=== PATIENT | female | born 1975 | race American Indian/Alaskan Native ===

== ENCOUNTER 2016-11-02 16:51 | Emergency (ER) | payer MEDICAID, OTHER ==
[2016-11-02 18:27] LABS: Anion Gap 18 mmol/L; Blood Urea Nitrogen 9 mg/dL (7-17); Calcium 9.5 mg/dL (8.4-10.2); Carbon Dioxide 26 mmol/L (22-30); Chloride 90.6 mmol/L (98-107); Glucose 360 mg/dL (65-100); Potassium 3.7 mmol/L (3.6-5.0); Sodium 131 mmol/L (137-145)
[2016-11-02 18:29] LABS: Basophils % (Auto) 0.5 % (0.0-1.8); Eosinophils % (Auto) 1.9 % (0.0-4.3); Hematocrit 39.9 % (30.3-42.9); Hemoglobin 12.8 gm/dl (10.1-14.3); Mean Corpuscular HGB Conc 32 % (30-34); Mean Corpuscular Hemoglobin 27 pg (28-32); Mean Corpuscular Volume 84 fl (79-97); Platelet Count 260 K/mm3 (140-440); Red Blood Count 4.76 M/mm3 (3.65-5.03); Red Cell Distribution Width 12.9 % (13.2-15.2); White Blood Count 5.8 K/mm3 (4.5-11.0)
[2016-11-02 18:36] LABS: Bilirubin,Urine NEG (Negative); Blood,Urine SM (Negative); Ketones,Urine TR mg/dL (Negative); Leukocyte Esterase,Urine SM (Negative); Mucus,Urine FEW /HPF; Nitrite,Urine NEG (Negative); Protein,Urine <15 mg/dL mg/dL (Negative); Urobilinogen,Urine < 2.0 mg/dL (<2.0)
[2016-11-02 21:36] VITALS: BP 142/89
[2016-11-02] MEDS ORDERED: NACL 0.9% 1000 ML 1,000 ML IV ONE (22:04)
[2016-11-02] MEDS ORDERED: NORCO 5/325 PO ONE (22:05)
[2016-11-02] MEDS ORDERED: ROCEPHIN/NS 1 GM/50 ML 1 GM/50 ML BAG IV ONE (22:05)
--- NOTE | 2016-11-02 22:09 | Emergency Department Report ---
HPI - General Chief Complaint: Skin/Abscess/Foreign Body Time Seen by Provider: 11/02/16 21:47 - HPI HPI: Room 1 The patient is a 41-year-old female presenting with chief complaint left inner thigh abscess. Patient states she noticed the swelling to her left inner thigh 4 days ago. 3 days ago she noticed increased swelling and increased pain. Yesterday there was some drainage from the site and today the drainage increased. The patient states the drainage was yellow in nature. Patient admits to subjective fever. The patient currently gives her pain a score of 5-6 /10 Location: Left thigh Duration: 4 Days Quality: Pain Severity: 5-6/10 Modifying factors: [see above] Context: [see above] Mode of transportation: Unknown ED Past Medical Hx - Past Medical History Previous Medical History?: Yes Hx Hypertension: Yes (during ) Hx Diabetes: Yes (type 2 ( Metformin &diet)) Additional medical history: heart murmur - Surgical History Past Surgical History?: No - Family History Family history: no significant - Social History Smoking Status: Never Smoker Substance Use Type: Alcohol (occasional) - Medications Home Medications: Home Medications Medication Instructions Recorded Confirmed Last Taken Type ALBUTEROL Inhaler [ProAir HFA 2 puff IH QID PRN #1 inhalation 05/07/15 11/02/16 Unknown Rx Inhaler] Metformin HCl [Glucophage] 1,000 mg PO BID #60 tablet 01/26/16 11/02/16 Rx glyBURIDE [Diabeta] 1.25 mg PO BID #60 tablet 01/26/16 11/02/16 11/01/16 Rx Clindamycin [Clindamycin CAP] 300 mg PO Q6H #28 capsule 11/02/16 Unknown Rx HYDROcodone/APAP 5-325 [[place] 1 - 2 each PO Q6HR PRN #10 tablet 11/02/16 Unknown Rx 5/325] Ibuprofen [Motrin 800 MG tab] 800 mg PO Q8HR PRN #20 tablet 11/02/16 Unknown Rx ED Review of Systems ROS: Stated complaint: CYST ON LT THIGH RUPTURED Other details as noted in HPI Comment: All other systems reviewed and negative Constitutional: denies: chills, fever Eyes: denies: eye pain, eye discharge, vision change ENT: denies: ear pain, throat pain Respiratory: denies: cough, shortness of breath, wheezing Cardiovascular: denies: chest pain, palpitations Endocrine: no symptoms reported Gastrointestinal: denies: abdominal pain, nausea, diarrhea Genitourinary: denies: urgency, dysuria, discharge Musculoskeletal: denies: back pain, joint swelling, arthralgia Skin: lesions Neurological: denies: headache, weakness, paresthesias Psychiatric: denies: anxiety, depression Hematological/Lymphatic: denies: easy bleeding, easy bruising Physical Exam - Physical Exam Vital Signs: Vital Signs 11/02/16 11/02/16 17:12 21:33 Temperature 98.3 F 98.4 F Pulse Rate 88 91 H Respiratory 20 20 Rate Blood Pressure 163/99 Blood Pressure 142/89 [Right] O2 Sat by Pulse 100 99 Oximetry Physical Exam: GENERAL: The patient is well-developed well-nourished female lying on stretcher not appearing to be in acute distress. [] HEENT: Normocephalic. Atraumatic. Extraocular motions are intact. Patient has moist mucous membranes. NECK: Supple. Trachea midline CHEST/LUNGS: Clear to auscultation. There is no respiratory distress noted. HEART/CARDIOVASCULAR: Regular. There is no tachycardia. There is no gallop rub or murmur. ABDOMEN: Abdomen is soft, nontender. Patient has normal bowel sounds. There is no abdominal distention. SKIN: There is an approximately 2 cm diameter region of induration with a 8 mm central opening that is not currently draining to the proximal inner left thigh adjacent to the perineum. The patient's doctor pigmentation makes it difficult to appreciate erythema. The lesion is tender to palpation. There is no diaphoresis. NEURO: The patient is awake, alert, and oriented. The patient is cooperative. The patient has normal speech MUSCULOSKELETAL: There is no evidence of acute injury. ED Course Vital Signs 11/02/16 11/02/16 17:12 21:33 Temperature 98.3 F 98.4 F Pulse Rate 88 91 H Respiratory 20 20 Rate Blood Pressure 163/99 Blood Pressure 142/89 [Right] O2 Sat by Pulse 100 99 Oximetry ED Medical Decision Making - Lab Data Result diagrams: 11/02/16 17:43 11/02/16 17:43 Laboratory Tests 11/02/16 11/02/16 11/02/16 17:09 17:43 17:43 WBC 5.8 RBC 4.76 Hgb 12.8 Hct 39.9 MCV 84 MCH 27 L MCHC 32 RDW 12.9 L Plt Count 260 Lymph % (Auto) 22.3 [place] % (Auto) 9.9 H Eos % (Auto) 1.9 Baso % (Auto) 0.5 Lymph # 1.3 [place] # 0.6 Eos # 0.1 Baso # 0.0 Seg Neutrophils % 65.4 Seg Neutrophils # 3.8 VBG pH Sodium 131 L Potassium 3.7 Chloride 90.6 L Carbon Dioxide 26 Anion Gap 18 BUN 9 Creatinine 0.6 L Estimated GFR > 60 BUN/Creatinine Ratio 15.00 Glucose 360 H POC Glucose 404 H Calcium 9.5 Urine Color Urine Turbidity Urine pH Ur Specific [place] Urine Protein Urine Glucose (UA) Urine Ketones Urine Blood Urine Nitrite Urine Bilirubin Urine Urobilinogen Ur Leukocyte Esterase Urine WBC (Auto) Urine RBC (Auto) U Epithel Cells (Auto) Urine Mucus 11/02/16 11/02/16 11/02/16 17:43 17:51 22:01 WBC RBC Hgb Hct MCV MCH MCHC RDW Plt Count Lymph % (Auto) [place] % (Auto) Eos % (Auto) Baso % (Auto) Lymph # [place] # Eos # Baso # Seg Neutrophils % Seg Neutrophils # VBG pH 7.340 Sodium Potassium Chloride Carbon Dioxide Anion Gap BUN Creatinine Estimated GFR BUN/Creatinine Ratio Glucose POC Glucose 388 H Calcium Urine Color Straw Urine Turbidity Clear Urine pH 6.0 Ur Specific [place] 1.028 Urine Protein <15 mg/dl Urine Glucose (UA) >=500 Urine Ketones Tr Urine Blood Sm Urine Nitrite Neg Urine Bilirubin Neg Urine Urobilinogen < 2.0 Ur Leukocyte Esterase Sm Urine WBC (Auto) 6.0 Urine RBC (Auto) 8.0 U Epithel Cells (Auto) 11.0 Urine Mucus Few - Differential Diagnosis abscess Critical care attestation.: If time is entered above; I have spent that time in minutes in the direct care of this critically ill patient, excluding procedure time. ED Disposition Clinical Impression: Abscess of left thigh, Hyperglycemia Disposition: DISCHARGED TO HOME OR SELFCARE Is pt being admited?: No Does the pt Need Aspirin: No Condition: Stable Instructions: Abscess (ED) Additional Instructions: Return to the emergency department immediately should you develop worsening symptoms, fever, inability to tolerate food or liquid or any other concerns. Prescriptions: Clindamycin [Clindamycin CAP] 300 mg PO Q6H #28 capsule HYDROcodone/APAP 5-325 [[place] 5/325] 1 - 2 each PO Q6HR PRN #10 tablet PRN Reason: Pain Ibuprofen [Motrin 800 MG tab] 800 mg PO Q8HR PRN #20 tablet PRN Reason: Pain Referrals: JAMAL VALLEJO MD [Primary Care Provider] - 3-5 Days Time of Disposition: 23:38
[2016-11-06 05:22] LABS: B-Hydroxybutyrate 0.1 mmol/L (0.2 - 0.28)
== END 2016-11-02 23:59 | disposition home or self-care (01) ==
LOC: ED 16:51
DX: L02.416 Cutaneous abscess of left lower limb (principal); E11.65 Type 2 diabetes mellitus with hyperglycemia
CPT/HCPCS: 36415; 80048; 81001; 82010; 82805; 82962; 85025; 96365; 96375; 99284; J0696; J7030; J1815

== ENCOUNTER 2019-05-27 11:24 | Observation (INO) | payer OTHER ==
--- NOTE | 2019-05-27 11:58 | Event Note ---
ED Screening Note Date of service: 05/27/19 Time: 11:56 ED Screening Note: 43 y o female presents with abd pain with vomitting and diarhea x 2 days states "20 episodes of vomitting"" This initial assessment/diagnostic orders/clinical plan/treatment(s) is/are subject to change based on patients health status, clinical progression and re- assessment by fellow clinical providers in the ED. Further treatment and workup at subsequent clinical providers discretion. Patient/guardian urged not to elope from the ED as their condition may be serious if not clinically assessed and managed. Initial orders include: labs, ua acc eval
[2019-05-27 12:37] LABS: Basophils % (Auto) 0.7 % (0.0-1.8); Eosinophils % (Auto) 0.5 % (0.0-4.3); Hematocrit 43.7 % (30.3-42.9); Hemoglobin 14.1 gm/dl (10.1-14.3); Lymphocytes # (Auto) 0.9 K/mm3 (1.2-5.4); Lymphocytes % (Auto) 25.8 % (13.4-35.0); Mean Corpuscular HGB Conc 32 % (30-34); Mean Corpuscular Volume 88 fl (79-97); Monocytes # (Auto) 0.5 K/mm3 (0.0-0.8); Monocytes % (Auto) 14.9 % (0.0-7.3); Platelet Count 237 K/mm3 (140-440); Red Blood Count 4.97 M/mm3 (3.65-5.03); Red Cell Distribution Width 13.3 % (13.2-15.2)
[2019-05-27 12:46] LABS: Bilirubin,Urine NEG (Negative); Blood,Urine SM (Negative); Color,Urine Yellow (Yellow); Mucus,Urine FEW /HPF; Protein,Urine <15 mg/dL mg/dL (Negative); Urobilinogen,Urine < 2.0 mg/dL (<2.0)
[2019-05-27 12:52] LABS: HCG Qualitative,Urine Negative (Negative)
[2019-05-27 13:04] LABS: Alanine Aminotransferase 18 units/L (7-56); Albumin 4.2 g/dL (3.9-5); BUN/Creatinine Ratio 10; Blood Urea Nitrogen 10 mg/dL (7-17); Calcium 8.8 mg/dL (8.4-10.2); Hemolysis Index 7
[2019-05-27] MEDS ORDERED: SODIUM CHLORIDE 0.9% 1000 ML 1,000 ML IV ONE (13:55)
--- NOTE | 2019-05-27 14:06 | Emergency Department Report ---
ED N/V/D HPI - General Chief complaint: Nausea/Vomiting/Diarrhea Stated complaint: STOMACH PAIN Time Seen by Provider: 05/27/19 13:54 Source: patient Mode of arrival: Ambulatory Limitations: No Limitations - History of Present Illness Initial comments: Patient is a 43-year-old female that presents emergency room with complaints of nausea vomiting diarrhea. Patient states that her symptoms started yesterday. Patient states they're worsening. Patient states she has had mild generalized abdominal pain. Patient states her abdominal pain is a 4 out of 10. Patient states her pain is better with rest and worse with vomiting and movement. Patient states she is a type II diabetic and is currently taking metformin, glyburide and insulin. Patient states her last A1c was 9. MD complaint: nausea, vomiting, diarrhea, abdominal pain -: Sudden Description of Vomiting: watery Description of Diarrhea: water Associated Abdominal Pain: Yes Location: diffuse Radiation: none Severity: mild, severe Pain Scale: 3 Quality: cramping Consistency: constant Improves with: rest Worsens with: movement Context: other Associated Symptoms: nausea/vomiting. denies: myalgias, chest pain, cough, diaphoresis, fever/chills, headaches, loss of appetite, malaise, rash, dysuria, shortness of breath, syncope, weakness - Related Data Home Medications Medication Instructions Recorded Confirmed Last Taken Ibuprofen [Motrin 800 MG tab] 800 mg PO PRN PRN 05/27/19 05/27/19 Unknown Novolin 70-30 100 Unit/ml Vial 35 units IM BID 05/27/19 05/27/19 Unknown Prednisone 40 mg PO ONCE 05/27/19 05/27/19 Unknown Previous Rx's Medication Instructions Recorded Last Taken Type Metformin HCl [Glucophage] 1,000 mg PO BID #60 tablet 01/26/16 11/01/16 Rx glyBURIDE [Diabeta] 1.25 mg PO BID #60 tablet 01/26/16 11/01/16 Rx Allergies Allergy/AdvReac Type Severity Reaction Status Date / Time No Known Allergies Allergy Verified 05/27/19 11:29 ED Review of Systems ROS: Stated complaint: STOMACH PAIN Other details as noted in HPI Constitutional: denies: chills, fever Eyes: denies: eye pain, eye discharge, vision change ENT: denies: ear pain, throat pain Respiratory: denies: cough, shortness of breath, wheezing Cardiovascular: denies: chest pain, palpitations Endocrine: no symptoms reported Gastrointestinal: abdominal pain, nausea, vomiting, diarrhea. denies: constipat ion, hematemesis, melena, hematochezia Genitourinary: denies: urgency, dysuria, discharge Musculoskeletal: denies: back pain, joint swelling, arthralgia Skin: denies: rash, lesions Neurological: denies: headache, weakness, paresthesias Psychiatric: denies: anxiety, depression Hematological/Lymphatic: denies: easy bleeding, easy bruising ED Past Medical Hx - Past Medical History Previous Medical History?: Yes Hx Hypertension: Yes (during ) Hx Congestive Heart Failure: No Hx Diabetes: Yes (type 2 ( Metformin &diet)) Hx Deep Vein Thrombosis: No Hx Renal Disease: No Hx Sickle Cell Disease: No Hx Seizures: No Hx Asthma: No Hx COPD: No Hx HIV: No Additional medical history: heart murmur - Surgical History Past Surgical History?: No - Family History Family history: no significant - Social History Smoking Status: Never Smoker Substance Use Type: None - Medications Home Medications: Home Medications Medication Instructions Recorded Confirmed Last Taken Type Metformin HCl [Glucophage] 1,000 mg PO BID #60 tablet 01/26/16 05/27/19 11/01/16 Rx glyBURIDE [Diabeta] 1.25 mg PO BID #60 tablet 01/26/16 05/27/19 11/01/16 Rx Ibuprofen [Motrin 800 MG tab] 800 mg PO PRN PRN 05/27/19 05/27/19 Unknown Histo ry Novolin 70-30 100 Unit/ml Vial 35 units IM BID 05/27/19 05/27/19 Unknown History Prednisone 40 mg PO ONCE 05/27/19 05/27/19 Unknown History ED Physical Exam - General Limitations: No Limitations General appearance: alert, in no apparent distress - Head Head exam: Present: atraumatic, normocephalic - Eye Eye exam: Present: normal appearance - ENT ENT exam: Present: mucous membranes dry - Neck Neck exam: Present: normal inspection - Respiratory Respiratory exam: Present: normal lung sounds bilaterally. Absent: respiratory distress - Cardiovascular Cardiovascular Exam: Present: regular rate, normal rhythm. Absent: systolic murmur, diastolic murmur, rubs, gallop - GI/Abdominal GI/Abdominal exam: Present: soft, normal bowel sounds. Absent: distended, tenderness, guarding - Extremities Exam Extremities exam: Present: normal inspection - Back Exam Back exam: Present: normal inspection - Neurological Exam Neurological exam: Present: alert, oriented X3 - Psychiatric Psychiatric exam: Present: normal affect, normal mood - Skin Skin exam: Present: warm, dry, intact, normal color. Absent: rash ED Course Vital Signs 05/27/19 05/27/19 05/27/19 11:55 14:36 14:59 Temperature 98.6 F Pulse Rate 105 H 90 Respiratory 20 20 20 Rate Blood Pressure 138/94 Blood Pressure 150/88 [Left] O2 Sat by Pulse 98 100 Oximetry - Reevaluation(s) Reevaluation #1: I discussed all results with patient. I discussed plan of care and admission patient. Patient agrees plan of admission patient would have an IV placed and given fluids. Patient will be admitted to the hospitalist service. 05/27/19 14:04 - Consultations Consultation #1: Hospitalist consult for admission. Hospitalist admit patient. Bridge orders placed. 05/27/19 14:17 ED Medical Decision Making - Lab Data Result diagrams: 05/27/19 12:16 05/27/19 12:16 - Medical Decision Making Patient is a 43-year-old female up since emergency room with complaints of abdominal pain, nausea vomiting and diarrhea. Patient found to be in HHS versus DKA versus metabolic acidosis. Patient admitted to the hospitalist service. Patient given a saline bolus. Patient's clinical findings consistent with metabolic acidosis and dehydration. - Differential Diagnosis n/v/d. acidosis. dka. hhs,. abd pain Critical Care Time: Yes Critical care time in (mins) excluding proc time.: 35 Critical care attestation.: If time is entered above; I have spent that time in minutes in the direct care of this critically ill patient, excluding procedure time. 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
--- NOTE | 2019-05-27 22:18 | History and Physical Report ---
History of Present Illness Date of examination: 05/27/19 Date of admission: 05/27/19 14:30 Chief complaint: Nausea Vomiting and Diarrhea for one day History of present illness: 43-year-old female that presents emergency room with complaints of nausea vomiting diarrhea. Patient states that her symptoms started yesterday. Patient states they're worsening. Patient states she has had mild generalized abdominal pain. Patient states her abdominal pain is a 4 out of 10. Patient states her pain is better with rest and worse with vomiting and movement. Patient states she is a type II diabetic and is currently taking metformin, glyburide and insulin. Patient states her last A1c was 9. Past Medical History Previous Medical History?: Yes Hypertension: Yes Diabetes: Yes (type 2 ( Metformin &diet)) Additional medical history: heart murmur Surgical History Past Surgical History?: No Family History Family history: no significant Social History Smoking Status: Never Smoker Substance Use Type: None - Medications Home Medications: Home Medications Medication Instructions Recorded Confirmed Last Taken Type Metformin HCl [Glucophage] 1,000 mg PO BID #60 tablet 01/26/16 05/27/19 11/01/16 Rx glyBURIDE [Diabeta] 1.25 mg PO BID #60 tablet 01/26/16 05/27/19 11/01/16 Rx Ibuprofen [Motrin 800 MG tab] 800 mg PO PRN PRN 05/27/19 05/27/19 Unknown History Novolin 70-30 100 Unit/ml Vial 35 units IM BID 05/27/19 05/27/19 Unknown History Prednisone 40 mg PO ONCE 05/27/19 05/27/19 Unknown History Review of Systems ROS: Stated complaint: STOMACH PAIN Other details as noted in HPI Constitutional: denies: chills, fever Eyes: denies: eye pain, eye discharge, vision change ENT: denies: ear pain, throat pain Respiratory: denies: cough, shortness of breath, wheezing Cardiovascular: denies: chest pain, palpitations Endocrine: no symptoms reported Gastrointestinal: abdominal pain, nausea, vomiting, diarrhea. denies: constipation, hematemesis, melena, hematochezia Genitourinary: denies: urgency, dysuria, discharge Musculoskeletal: denies: back pain, joint swelling, arthralgia Skin: denies: rash, lesions Neurological: denies: headache, weakness, paresthesias Psychiatric: denies: anxiety, depression Hematological/Lymphatic: denies: easy bleeding, easy bruising Medications and Allergies Allergies Allergy/AdvReac Type Severity Reaction Status Date / Time No Known Allergies Allergy Verified 05/27/19 11:29 Home Medications Medication Instructions Recorded Confirmed Last Taken Type Metformin HCl [Glucophage] 1,000 mg PO BID #60 tablet 01/26/16 05/27/19 11/01/16 Rx glyBURIDE [Diabeta] 1.25 mg PO BID #60 tablet 01/26/16 05/27/19 11/01/16 Rx Ibuprofen [Motrin 800 MG tab] 800 mg PO PRN PRN 05/27/19 05/27/19 Unknown History Novolin 70-30 100 Unit/ml Vial 35 units IM BID 05/27/19 05/27/19 Unknown History Prednisone 40 mg PO ONCE 05/27/19 05/27/19 Unknown History Active Meds: Active Medications Pneumococcal Polyvalent Vaccine (Pneumovax 23) 0.5 ml IM .ONCE ONE Stop: 05/28/19 12:01 Exam - Constitutional Vitals: Temp Pulse Resp BP Pulse Ox 98.1 F 88 22 152/83 100 05/27/19 16:12 05/27/19 16:12 05/27/19 16:12 05/27/19 16:12 05/27/19 16:12 General appearance: Present: no acute distress, well-nourished - EENT Eyes: Present: PERRL ENT: hearing intact, clear oral mucosa - Neck Neck: Present: supple, normal ROM - Respiratory Respiratory effort: normal Respiratory: bilateral: CTA - Cardiovascular Heart rate: 78 Rhythm: regular Heart Sounds: Present: S1 & S2. Absent: rub, click - Extremities Extremities: no ischemia, pulses intact, pulses symmetrical, No edema Peripheral Pulses: within normal limits - Abdominal General gastrointestinal: Present: soft, non-tender, non-distended, normal bowel sounds Female genitourinary: Present: normal - Integumentary Integumentary: Present: clear, warm, dry - Musculoskeletal Musculoskeletal: gait normal, strength equal bilaterally - Psychiatric Psychiatric: appropriate mood/affect, intact judgment & insight - Neurologic Neurologic: CNII-XII intact, moves all extremities Results - Labs CBC & Chem 7: 05/28/19 05:02 05/28/19 05:01 Labs: Laboratory Last Values WBC 3.5 K/mm3 (4.5-11.0) L 05/27/19 12:16 RBC 4.97 M/mm3 (3.65-5.03) 05/27/19 12:16 Hgb 14.1 gm/dl (10.1-14.3) 05/27/19 12:16 Hct 43.7 % (30.3-42.9) H 05/27/19 12:16 MCV 88 fl (79-97) 05/27/19 12:16 MCH 28 pg (28-32) 05/27/19 12:16 MCHC 32 % (30-34) 05/27/19 12:16 RDW 13.3 % (13.2-15.2) 05/27/19 12:16 Plt Count 237 K/mm3 (140-440) 05/27/19 12:16 Lymph % (Auto) 25.8 % (13.4-35.0) 05/27/19 12:16 [place] % (Auto) 14.9 % (0.0-7.3) H 05/27/19 12:16 Eos % (Auto) 0.5 % (0.0-4.3) 05/27/19 12:16 Baso % (Auto) 0.7 % (0.0-1.8) 05/27/19 12:16 Lymph # 0.9 K/mm3 (1.2-5.4) L 05/27/19 12:16 [place] # 0.5 K/mm3 (0.0-0.8) 05/27/19 12:16 Eos # 0.0 K/mm3 (0.0-0.4) 05/27/19 12:16 Baso # 0.0 K/mm3 (0.0-0.1) 05/27/19 12:16 Seg Neutrophils % 58.1 % (40.0-70.0) 05/27/19 12:16 Seg Neutrophils # 2.0 K/mm3 (1.8-7.7) 05/27/19 12:16 Sodium 132 mmol/L (137-145) L 05/27/19 12:16 Potassium 3.5 mmol/L (3.6-5.0) L 05/27/19 12:16 Chloride 93.0 mmol/L (98-107) L 05/27/19 12:16 Carbon Dioxide 18 mmol/L (22-30) L 05/27/19 12:16 Anion Gap 25 mmol/L 05/27/19 12:16 BUN 10 mg/dL (7-17) 05/27/19 12:16 Creatinine 1.0 mg/dL (0.7-1.2) 05/27/19 12:16 Estimated GFR > 60 ml/min 05/27/19 12:16 BUN/Creatinine Ratio 10 % 05/27/19 12:16 Glucose 391 mg/dL (65-100) H 05/27/19 12:16 POC Glucose 290 (70-105) H 05/27/19 21:46 Hemoglobin A1c 10.1 % (4-6) H 05/27/19 14:30 Calcium 8.8 mg/dL (8.4-10.2) 05/27/19 12:16 Total Bilirubin 0.40 mg/dL (0.1-1.2) 05/27/19 12:16 AST 18 units/L (5-40) 05/27/19 12:16 ALT 18 units/L (7-56) 05/27/19 12:16 Alkaline Phosphatase 93 units/L (35-129) 05/27/19 12:16 Total Protein 7.5 g/dL (6.3-8.2) 05/27/19 12:16 Albumin 4.2 g/dL (3.9-5) 05/27/19 12:16 Albumin/Globulin Ratio 1.3 % 05/27/19 12:16 Lipase 37 units/L (13-60) 05/27/19 12:16 Urine Color Yellow (Yellow) 05/27/19 12:10 Urine Turbidity Clear (Clear) 05/27/19 12:10 Urine pH 6.0 (5.0-7.0) 05/27/19 12:10 Ur Specific [place] 1.028 (1.003-1.030) 05/27/19 12:10 Urine Protein <15 mg/dl mg/dL (Negative) 05/27/19 12:10 Urine Glucose (UA) >=500 mg/dL (Negative) 05/27/19 12:10 Urine Ketones Tr mg/dL (Negative) 05/27/19 12:10 Urine Blood Sm (Negative) 05/27/19 12:10 Urine Nitrite Neg (Negative) 05/27/19 12:10 Urine Bilirubin Neg (Negative) 05/27/19 12:10 Urine Urobilinogen < 2.0 mg/dL (<2.0) 05/27/19 12:10 Ur Leukocyte Esterase Tr (Negative) 05/27/19 12:10 Urine WBC (Auto) 2.0 /HPF (0.0-6.0) 05/27/19 12:10 Urine RBC (Auto) 2.0 /HPF (0.0-6.0) 05/27/19 12:10 U Epithel Cells (Auto) 4.0 /HPF (0-13.0) 05/27/19 12:10 Urine Mucus Few /HPF 05/27/19 12:10 Urine HCG, Qual Negative (Negative) 05/27/19 12:10 Assessment and Plan Advance Directives: Yes (Full code) VTE prophylaxis?: Chemical Plan of care discussed with patient/family: Yes - Patient Problems (1) Acute gastroenteritis Current Visit: Yes Status: Acute Plan to address problem: IV Normal saline and Zofran for now Hold Metformin which can be causing Diarrhea and vomiting. (2) Uncontrolled diabetes mellitus Current Visit: Yes Status: Chronic Qualifiers: Diabetes mellitus type: type 2 Plan to address problem: Adjust Insulin dosage No need for Oral Hypoglycemics as she is getting Insulin (3) Acute dehydration Current Visit: Yes Status: Acute Plan to address problem: IV Fluids for now (4) Hyponatremia Current Visit: Yes Status: Acute Plan to address problem: Sec to High Glucose levels Will correct with correction of BG levels (5) DVT prophylaxis Current Visit: Yes Status: Acute Plan to address problem: On Heparin and GI prophylaxis
[2019-05-27] MEDS ORDERED: ONDANSETRON 4 MG/2 ML INJ IV PRN (22:19)
[2019-05-27] MEDS ORDERED: HYDROmorphone 1 MG/1 ML INJ IV PRN (22:19)
[2019-05-27] MEDS ORDERED: ACETAMINOPHEN 325 MG TAB PO PRN (22:19)
[2019-05-27] MEDS: INSULIN LISPRO 100 UNIT/ML SUB-Q SCH (22:42)
[2019-05-27] MEDS ORDERED: SODIUM CHLORIDE 0.9% 1000 ML 1,000 ML IV SCH (23:00)
[2019-05-28 05:33] LABS: Basophils % (Auto) 0.5 % (0.0-1.8); Hematocrit 39.3 % (30.3-42.9); Hemoglobin 12.9 gm/dl (10.1-14.3); Lymphocytes # (Auto) 1.3 K/mm3 (1.2-5.4); Lymphocytes % (Auto) 28.6 % (13.4-35.0); Mean Corpuscular HGB Conc 33 % (30-34); Mean Corpuscular Volume 87 fl (79-97); Monocytes # (Auto) 0.6 K/mm3 (0.0-0.8); Monocytes % (Auto) 14.2 % (0.0-7.3); Platelet Count 217 K/mm3 (140-440); Red Blood Count 4.55 M/mm3 (3.65-5.03); Red Cell Distribution Width 13.2 % (13.2-15.2)
[2019-05-28 05:57] LABS: Alanine Aminotransferase 21 units/L (7-56); Albumin 3.7 g/dL (3.9-5); BUN/Creatinine Ratio 15; Blood Urea Nitrogen 12 mg/dL (7-17); Calcium 8.3 mg/dL (8.4-10.2); Hemolysis Index 7
[2019-05-28] MEDS ORDERED: glyBURIDE 2.5 MG TAB PO SCH (08:00)
[2019-05-28] MEDS ORDERED: INSULIN NPH/REGULAR 70/30 INJ SUB-Q SCH (08:00)
[2019-05-28] MEDS: INSULIN LISPRO 100 UNIT/ML SUB-Q SCH ×2 (09:08→12:19)
[2019-05-28] MEDS ORDERED: GLYBURIDE 1.25 MG PO SCH (10:00)
[2019-05-28] MEDS ORDERED: HEPARIN 5,000 UNIT/1 ML VIAL SUB-Q SCH (10:00)
[2019-05-28] MEDS ORDERED: PNEUMOCOCCAL 23 Valent 0.5 ML VIAL IM ONE (12:00)
[2019-05-28] MEDS ORDERED: FLU VACC QUAD 2019-20 (3 YR UP)/PF 60 MCG/0.5 ML SYRINGE IM ONE (12:00)
[2019-05-28] MEDS ORDERED: ALUM-MAG HYDROXIDE-SIMETHICONE 200-200-20MG/5ML ORAL LIQD 30 ML PO ONE (12:00)
[2019-05-28] MEDS ORDERED: ALUM-MAG HYDROXIDE-SIMETHICONE 200-200-20MG/5ML ORAL LIQD 30 ML PO PRN (12:30)
[2019-05-28 12:33] VITALS: BP 140/88
--- NOTE | 2019-05-28 12:50 | Discharge Summary ---
Providers - Providers Date of Admission: 05/27/19 14:30 Date of discharge: 05/28/19 Attending physician: EUGENIE WHITAKER [facility] Reason for admission: Nausea and vomiting Condition: Stable Hospital course: 43-year-old female that presents emergency room with complaints of nausea vomiting diarrhea. Patient states that her symptoms started yesterday. Patient states they're worsening. Patient states she has had mild generalized abdominal pain. Patient states her abdominal pain is a 4 out of 10. Patient states her pain is better with rest and worse with vomiting and movement. Patient states she is a type II diabetic and is currently taking metformin, glyburide and insulin. Patient states her last A1c was 9. Admitted and symptomatically managed with IV fluids,antiemetics and supportive care. Patient felt better,no new complaints,vital signs stable. Discharge home. Advised plenty oral fluids -- Acute gastroenteritis Current Visit: Yes Status: Acute IV Normal saline and Zofran for now Hold Metformin which can be causing Diarrhea and vomiting. --Uncontrolled diabetes mellitus Current Visit: Yes Status: Chronic Adjust Insulin dosage No need for Oral Hypoglycemics as she is getting Insulin --Acute dehydration Current Visit: Yes Status: Acute IV Fluids for now -- Hyponatremia Current Visit: Yes Status: Acute Sec to High Glucose levels Will correct with correction of BG levels --DVT prophylaxis Current Visit: Yes Status: Acute On Heparin and GI prophylaxis Stable at discharge Disposition: MD-01 TO HOME OR SELFCARE Time spent for discharge: 32 min Core Measure Documentation - Palliative Care Palliative Care/ Comfort Measures: Not Applicable - Core Measures Any of the following diagnoses?: none Exam - Constitutional Vitals: Temp Pulse Resp BP Pulse Ox 97.6 F 86 20 140/88 98 05/28/19 11:36 05/28/19 11:36 05/28/19 11:36 05/28/19 11:36 05/28/19 11:36 General appearance: Present: no acute distress, well-nourished, obese - EENT Eyes: Present: PERRL, EOM intact - Neck Neck: Present: supple, normal ROM - Respiratory Respiratory effort: normal Respiratory: negative: rales, rhonchi, wheezing - Cardiovascular Rhythm: regular Heart Sounds: Present: S1 & S2 - Extremities Extremities: no ischemia, No edema - Abdominal General gastrointestinal: Present: soft, non-tender, non-distended, normal bowel sounds - Integumentary Integumentary: Present: clear, warm - Musculoskeletal Musculoskeletal: strength equal bilaterally - Psychiatric Psychiatric: appropriate mood/affect, cooperative - Neurologic Neurologic: moves all extremities Plan Activity: no restrictions Diet: diabetic Additional Instructions: Advice 2 days work excuse, on 05/29 &05/30/2019. Advance diet as tolerated Follow up with: NORBERT GARCÍAROOSEVELT MD DORIS [Primary Care Provider] - 3-5 Days Forms: Work/School Release Form Prescriptions: Omeprazole 40 mg PO DAILY #30 capsule. Ondansetron [Zofran Odt] 4 mg PO Q8HR PRN #15 tab.rapdis PRN Reason: Nausea And Vomiting
== END 2019-05-28 14:05 | disposition home or self-care (01) ==
LOC: ED 11:24 → 3A 14:30
PROVIDERS: ADMIT Internal Medicine; ATTEND Internal Medicine
DX: K52.9 Noninfective gastroenteritis and colitis, unspecified (principal); E11.65 Type 2 diabetes mellitus with hyperglycemia; E72.51 Non-ketotic hyperglycinemia; E87.2 Acidosis; E86.0 Dehydration; E87.1 Hypo-osmolality and hyponatremia; Z79.84 Long term (current) use of oral hypoglycemic drugs
CPT/HCPCS: 36415; 80053; 81001; 81025; 82962; 83036; 83690; 85025; 90686; 90732; 96360; 96372; 99291; G0378; J7030; J1644; J1815

== ENCOUNTER 2020-05-08 12:12 | Emergency (ER) | payer OTHER ==
--- NOTE | 2020-05-08 13:44 | Emergency Department Report ---
ED Extremity Problem HPI - General Chief complaint: Extremity Injury, Lower Stated complaint: KNEE PAIN Time Seen by Provider: 05/08/20 13:19 Source: patient Mode of arrival: Ambulatory Limitations: No Limitations - History of Present Illness Initial comments: Patient is a 44-year-old female presents emergency room complaints of left knee pain and weakness that began a couple days ago. She states it feels like her knee is giving out on her and buckling. She denies any fall or injury. She states that she has had problems with this knee in the past. She is ambulatory. She denies any knee swelling or numbness. Past medical history of hypertension and diabetes. No allergies to medications. She states that she did take her blood pressure medication this morning but does not know what she took. - Related Data Home Medications Medication Instructions Recorded Confirmed Last Taken Novolin 70-30 100 Unit/ml Vial 35 units IM BID 05/27/19 05/27/19 Unknown Previous Rx's Medication Instructions Recorded Last Taken Type Metformin HCl [Glucophage] 1,000 mg PO BID #60 tablet 01/26/16 11/01/16 Rx glyBURIDE [Diabeta] 1.25 mg PO BID #60 tablet 01/26/16 11/01/16 Rx Omeprazole 40 mg PO DAILY #30 capsule. 05/28/19 Unknown Rx Ondansetron [Zofran Odt] 4 mg PO Q8HR PRN #15 tab.ginette 05/28/19 Unknown Rx Famotidine [Pepcid] 20 mg PO BID #60 tablet 01/17/20 Unknown Rx Ondansetron [Zofran Odt] 4 mg PO Q6HR PRN #20 tab.ginette 01/17/20 Unknown Rx Sucralfate [Carafate] 1 gm PO Q6HR #60 tablet 01/17/20 Unknown Rx Naproxen [EC-Naproxen] 500 mg PO BID PRN #14 tablet. 05/08/20 Unknown Rx Allergies Allergy/AdvReac Type Severity Reaction Status Date / Time No Known Allergies Allergy Verified 05/27/19 11:29 ED Review of Systems ROS: Stated complaint: KNEE PAIN Other details as noted in HPI Comment: All other systems reviewed and negative ED Past Medical Hx - Past Medical History Hx Hypertension: Yes (during ) Hx Congestive Heart Failure: No Hx Diabetes: Yes (type 2 ( Metformin &diet)) Hx Deep Vein Thrombosis: No Hx GERD: Yes Hx Renal Disease: No Hx Sickle Cell Disease: No Hx Seizures: No Hx Asthma: No Hx COPD: No Hx HIV: No Additional medical history: Hyperlipidemia; heart murmur - Surgical History Past Surgical History?: No - Social History Smoking Status: Never Smoker - Medications Home Medications: Home Medications Medication Instructions Recorded Confirmed Last Taken Type Metformin HCl [Glucophage] 1,000 mg PO BID #60 tablet 01/26/16 05/27/19 11/01/16 Rx glyBURIDE [Diabeta] 1.25 mg PO BID #60 tablet 01/26/16 05/27/19 11/01/16 Rx Novolin 70-30 100 Unit/ml Vial 35 units IM BID 05/27/19 05/27/19 Unknown History Omeprazole 40 mg PO DAILY #30 capsule. 05/28/19 Unknown Rx Ondansetron [Zofran Odt] 4 mg PO Q8HR PRN #15 tab.rapdis 05/28/19 Unknown Rx Famotidine [Pepcid] 20 mg PO BID #60 tablet 01/17/20 Unknown Rx Ondansetron [Zofran Odt] 4 mg PO Q6HR PRN #20 tab.rapdis 01/17/20 Unknown Rx Sucralfate [Carafate] 1 gm PO Q6HR #60 tablet 01/17/20 Unknown Rx Naproxen [EC-Naproxen] 500 mg PO BID PRN #14 tablet. 05/08/20 Unknown Rx ED Physical Exam - General Limitations: No Limitations General appearance: alert, in no apparent distress - Head Head exam: Present: atraumatic, normocephalic - Eye Eye exam: Present: normal appearance - ENT ENT exam: Present: mucous membranes moist - Respiratory Respiratory exam: Absent: respiratory distress, accessory muscle use - Extremities Exam Extremities exam: Present: other (no ttp of the left knee, no edema, no erythema, no increased warmth, no skin changes, FROM of the left knee with some discomfort upon internal rotation, neurovascularly intact) - Neurological Exam Neurological exam: Present: alert, oriented X3 - Psychiatric Psychiatric exam: Present: normal affect, normal mood - Skin Skin exam: Present: warm, dry, intact ED Course Vital Signs 05/08/20 05/08/20 13:12 14:17 Temperature 98.3 F Pulse Rate 87 Respiratory 16 Rate Blood Pressure 213/93 Blood Pressure 181/88 [Left] O2 Sat by Pulse 100 Oximetry ED Medical Decision Making - Radiology Data Radiology results: report reviewed Ordering Physician: ARABELLA CUTLER Date of Service: 05/08/20 Procedure(s): XR knee 3V LT Accession Number(s): [id number] cc: ARABELLA CUTLER Fluoro Time In Minutes: Left knee-3 views INDICATION: left knee pain, feels like knee is giving out. COMPARISON: None. IMPRESSION: No acute osseous or soft tissue abnormality. No significant DJD. Signer Name: Guprreet Hay MD Signed: 05/08/2020 1:51 PM Workstation Name: [id number] Transcribed By: SERINA Dictated By: Gurpreet Hay MD Electronically Authenticated By: Gurpreet Hay MD Signed Date/Time: 05/08/20 1351 DD/ 1350 TD/TT: - Medical Decision Making Patient is a 44-year-old female presents emergency room complaints of left knee pain and weakness that began a couple days ago. She states it feels like her knee is giving out on her and buckling. She denies any fall or injury. She states that she has had problems with this knee in the past. She is ambulatory. She denies any knee swelling or numbness. Past medical history of hypertension and diabetes. No allergies to medications. She states that she did take her blood pressure medication this morning but does not know what she took. initial vitals with elevated BP which improved upon repeat but BP is still elevated, she is not having any symptoms related to her elevated blood pressure, the up-to-date medical literature does not recommend to emergently lower asymptomatic elevated blood pressure. Discussed for patient to follow-up with her primary care doctor, eat a low-sodium diet, increase water intake, incorporate 30 to 60 minutes of daily exercise, keep a blood pressure log and take this to the primary care doctor. on exam: no ttp of the left knee, no edema, no erythema, no increased warmth, no skin changes, FROM of the left knee with some discomfort upon internal rotation, neurovascularly intact. XR left knee: IMPRESSION: No acute osseous or soft tissue abnormality. No significant DJD. Discussed all results with patient and answered questions. Patient placed in Ryan wrap by nurse and remained neurovascularly intact. Symptoms could be related to tendinitis. she has had no traumatic injury. she has no clinical sig ns of gout, septic joint, or DVT. Patient be referred to orthopedic doctor. pt given prescription for naproxen. advised pt Please take medication as prescribed as needed. May use ice for 15 minutes at a time, rest, elevation of the leg. Please do not wear Ryan bandage too tightly and do not wear at night while sleeping. Follow-up with orthopedic doctor. Return to emergency room for any new or worsening symptoms. - Differential Diagnosis Strain, sprain, fracture, dislocation, effusion, arthritis, tendinitis Critical care attestation.: If time is entered above; I have spent that time in minutes in the direct care of this critically ill patient, excluding procedure time. ED Disposition Clinical Impression: Elevated blood pressure reading Left knee pain Qualifiers: Chronicity: acute Qualified Code(s): M25.562 - Pain in left knee Knee buckling Qualifiers: Laterality: left Qualified Code(s): M25.362 - Other instability, left knee Disposition: DC- TO HOME OR SELFCARE Is pt being admited?: No Does the pt Need Aspirin: No Condition: Stable Instructions: Knee Pain (ED), Low Sodium Diet (ED), RICE Therapy (ED) Additional Instructions: Please take medication as prescribed as needed. May use ice for 15 minutes at a time, rest, elevation of the leg. Please do not wear Ryan bandage too tightly and do not wear at night while sleeping. Follow-up with orthopedic doctor. Return to emergency room for any new or worsening symptoms. Prescriptions: Naproxen [EC-Naproxen] 500 mg PO BID PRN #14 tablet.dr MUNOZ Reason: pain Referrals: PRIMARY MD RASHI [Primary Care Provider] - 2-3 Days ANUJA EAGLE MD [Staff Physician] - 2-3 Days [facility] [Provider Group] - 2-3 Days Forms: Work/School Release Form(ED) Time of Disposition: 14:02 Print Language: WOLOF
--- NOTE | 2020-05-08 13:56 | XRay Report ---
Left knee-3 views INDICATION: left knee pain, feels like knee is giving out. COMPARISON: None. IMPRESSION: No acute osseous or soft tissue abnormality. No significant DJD. Signer Name: Gurpreet Hay MD Signed: 05/08/2020 1:51 PM Workstation Name: [id number]
[2020-05-08 14:27] VITALS: BP 181/88
== END 2020-05-08 14:22 | disposition home or self-care (01) ==
LOC: ED 12:12
DX: M25.562 Pain in left knee (principal); M25.362 Other instability, left knee; I10 Essential (primary) hypertension; E11.9 Type 2 diabetes mellitus without complications; K21.9 Gastro-esophageal reflux disease without esophagitis; Z79.84 Long term (current) use of oral hypoglycemic drugs; Z79.899 Other long term (current) drug therapy

== ENCOUNTER 2021-05-20 20:32 | Emergency (ER) | payer OTHER ==
[2021-05-20 20:38] VITALS: BP 153/84
[2021-05-20] MEDS ORDERED: ALUM-MAG HYDROXIDE-SIMETHICONE 200-200-20MG/5ML ORAL LIQD 30 ML PO ONE (22:20)
[2021-05-20] MEDS ORDERED: LIDOCAINE VISCOUS 2% 15 ML ORAL LIQD PO ONE (22:20)
[2021-05-20] MEDS ORDERED: ONDANSETRON 4 MG ODT TAB PO ONE (22:21)
--- NOTE | 2021-05-20 22:27 | Emergency Department Report ---
ED Abdominal Pain HPI - General Chief Complaint: Abdominal Pain Stated Complaint: DIZZINES, N&V Time Seen by Provider: 05/20/21 22:11 Source: patient Mode of arrival: Ambulatory Limitations: No Limitations - History of Present Illness Initial Comments: Chief complaint: Abdominal pain HPI: This is a 45-year-old female with history of GERD, insulin-dependent diabetes who presents with epigastric pain nausea diarrhea. For several months patient's had diarrhea which occurs after food. She has been taking omeprazole for GERD. Yesterday she ate crab legs. She is concerned for a stomach virus. She has been referred to GI specialist. Her appointment for GI is June 07. She denies fever, vomiting. She has nausea. Epigastric achy pain. She to lerated food today. She tolerated sandwich no diarrhea. MD Complaint: abdominal pain -: Gradual, days(s) (1 day), month(s) (Several months) Location: epigastric Severity: mild Severity scale (0 -10): 4 Quality: aching Consistency: constant Improves With: nothing Worsens With: nothing Associated Symptoms: nausea, diarrhea - Related Data Home Medications Medication Instructions Recorded Confirmed Last Taken Novolin 70-30 100 Unit/ml Vial 35 units IM BID 05/27/19 05/27/19 Unknown Previous Rx's Medication Instructions Recorded Last Taken Type Metformin HCl [Glucophage] 1,000 mg PO BID #60 tablet 01/26/16 11/01/16 Rx glyBURIDE [Diabeta] 1.25 mg PO BID #60 tablet 01/26/16 11/01/16 Rx Omeprazole 40 mg PO DAILY #30 capsule. 05/28/19 Unknown Rx Ondansetron [Zofran Odt] 4 mg PO Q8HR PRN #15 tab.ginette 05/28/19 Unknown Rx Famotidine [Pepcid] 20 mg PO BID #60 tablet 01/17/20 Unknown Rx Ondansetron [Zofran Odt] 4 mg PO Q6HR PRN #20 tab.ginette 01/17/20 Unknown Rx Sucralfate [Carafate] 1 gm PO Q6HR #60 tablet 01/17/20 Unknown Rx Naproxen [EC-Naproxen] 500 mg PO BID PRN #14 tablet. 05/08/20 Unknown Rx Promethazine [Phenergan] 25 mg PO Q6HR PRN #10 tab 05/20/21 Unknown Rx Allergies Allergy/AdvReac Type Severity Reaction Status Date / Time No Known Allergies Allergy Verified 05/27/19 11:29 ED Review of Systems ROS: Stated complaint: DIZZINES, N&V Other details as noted in HPI Comment: All other systems reviewed and negative Constitutional: denies: chills, fever, malaise Gastrointestinal: abdominal pain, nausea, diarrhea ED Past Medical Hx - Past Medical History Previous Medical History?: Yes Hx Hypertension: Yes (during ) Hx Congestive Heart Failure: No Hx Diabetes: Yes (type 2 ( Metformin &diet)) Hx Deep Vein Thrombosis: No Hx GERD: Yes Hx Renal Disease: No Hx Sickle Cell Disease: No Hx Seizures: No Hx Asthma: No Hx COPD: No Hx HIV: No Additional medical history: Hyperlipidemia; heart murmur - Surgical History Past Surgical History?: No - Social History Smoking Status: Never Smoker - Medications Home Medications: Home Medications Medication Instructions Recorded Confirmed Last Taken Type Metformin HCl [Glucophage] 1,000 mg PO BID #60 tablet 01/26/16 05/27/19 11/01/16 Rx glyBURIDE [Diabeta] 1.25 mg PO BID #60 tablet 01/26/16 05/27/19 11/01/16 Rx Novolin 70-30 100 Unit/ml Vial 35 units IM BID 05/27/19 05/27/19 Unknown History Omeprazole 40 mg PO DAILY #30 capsule. 05/28/19 Unknown Rx Ondansetron [Zofran Odt] 4 mg PO Q8HR PRN #15 tab.rapdis 05/28/19 Unknown Rx Famotidine [Pepcid] 20 mg PO BID #60 tablet 01/17/20 Unknown Rx Ondansetron [Zofran Odt] 4 mg PO Q6HR PRN #20 tab.rapdis 01/17/20 Unknown Rx Sucralfate [Carafate] 1 gm PO Q6HR #60 tablet 01/17/20 Unknown Rx Naproxen [EC-Naproxen] 500 mg PO BID PRN #14 tablet. 05/08/20 Unknown Rx Promethazine [Phenergan] 25 mg PO Q6HR PRN #10 tab 05/20/21 Unknown Rx ED Physical Exam - General Limitations: No Limitations General appearance: alert, in no apparent distress - Head Head exam: Present: atraumatic, normocephalic - Eye Eye exam: Present: normal appearance - ENT ENT exam: Present: mucous membranes moist - Neck Neck exam: Present: normal inspection, full ROM - Respiratory Respiratory exam: Present: normal lung sounds bilaterally. Absent: respiratory distress, wheezes, rales, stridor - Cardiovascular Cardiovascular Exam: Present: regular rate, normal rhythm, normal heart sounds. Absent: systolic murmur, diastolic murmur, rubs, gallop - GI/Abdominal GI/Abdominal exam: Present: soft, normal bowel sounds. Absent: distended, tenderness, guarding, rebound - Extremities Exam Extremities exam: Present: normal inspection - Back Exam Back exam: Present: normal inspection - Neurological Exam Neurological exam: Present: alert, oriented X3 - Psychiatric Psychiatric exam: Present: normal affect, normal mood - Skin Skin exam: Present: warm, dry, intact, normal color. Absent: rash ED Course Vital Signs 05/20/21 20:35 Temperature 98.7 F Pulse Rate 83 Respiratory 17 Rate Blood Pressure 153/84 [Right] O2 Sat by Pulse 100 Oximetry ED Medical Decision Making - Medical Decision Making This 45-year-old female with history of insulin-dependent diabetes GERD who has had several months of abdominal pain diarrhea. She has been referred to GI specialist. She is concerned for stomach virus at this time. She does not have signs of peritonitis or obstruction. I do not suspect acute intraabdominal inflammatory structure process. Normal vital signs. Normal physical exam. Differential diagnosis includes peptic ulcer disease, IBS, gastroparesis. I have prescribed promethazine. She received Maalox viscous lidocaine in emergency department. She is discharged home with instructions. Critical care attestation.: If time is entered above; I have spent that time in minutes in the direct care of this critically ill patient, excluding procedure time. ED Disposition Clinical Impression: GERD (gastroesophageal reflux disease), Diabetes mellitus Disposition: 01 HOME / SELF CARE / HOMELESS Is pt being admited?: No Does the pt Need Aspirin: No Condition: Stable Instructions: Abdominal Pain (ED), Diabetes Mellitus Type 2 in Adults (ED), Diet for Irritable Bowel Syndrome, Irritable Bowel Syndrome, Adult Prescriptions: Promethazine [Phenergan] 25 mg PO Q6HR PRN #10 tab PRN Reason: Nausea Referrals: PRIMARY CARE, [Referring] - 3-5 Days Forms: Work/School Release Form(ED)
== END 2021-05-20 23:46 | disposition home or self-care (01) ==
LOC: ED 20:32
DX: K21.9 Gastro-esophageal reflux disease without esophagitis (principal); E11.9 Type 2 diabetes mellitus without complications; I10 Essential (primary) hypertension; Z79.84 Long term (current) use of oral hypoglycemic drugs; Z79.899 Other long term (current) drug therapy
CPT/HCPCS: 99282; J3490; Q0162

== ENCOUNTER 2021-06-04 09:28 | Outpatient (CLI) | payer OTHER ==
--- NOTE | 2021-06-04 11:18 | XRay Report ---
CERVICAL SPINE HISTORY: Neck pain. COMPARISON: None. TECHNIQUE: 3 view(s) of the cervical spine obtained. FINDINGS: Vertebrae: No evidence of vertebral body fracture or subluxation. Straightening of the cervical spine may represent patient positioning or muscle spasm. Disc Spaces:Disc spaces appear preserved. Mild to moderate anterior osteophytosis atC2/C3, C4/C5, and C5/C6. Facet Joints:No significant abnormality. Prevertebral Soft Tissues:No significant abnormality. Additional findings: None. IMPRESSION: Cervical spine without evidence of acute osseous injury or significant degenerative change. Straightening of the cervical spine may reflect patient positioning or muscle spasm. Signer Name: Jadiel Chan MD Signed: 06/04/2021 11:13 AM Workstation Name: [id number]
--- NOTE | 2021-06-04 11:53 | XRay Report ---
RIGHT SHOULDER HISTORY: Pain COMPARISON: None. TECHNIQUE: 3 views of the right shoulder were obtained. FINDINGS: Bones: No fracture or dislocation. Joint spaces: Maintained. Soft tissues: No significant abnormality. Additional findings: None. IMPRESSION: Unremarkable right shoulder radiographs. No acute osseous injury or significant degenerative change. Signer Name: Jadiel Chan MD Signed: 06/04/2021 11:49 AM Workstation Name: [id number]
== END 2021-06-04 09:29 | disposition home or self-care (01) ==
LOC: XRAY 09:28
PROVIDERS: ATTEND Orthopaedic Surgery
DX: M25.78 Osteophyte, vertebrae (principal); M25.511 Pain in right shoulder; M54.2 Cervicalgia
CPT/HCPCS: 72050